=== PATIENT | female | born 1995 | race Caucasian/White ===

== ENCOUNTER 2020-03-03 11:38 | Emergency (ER) | payer MEDICAID, OTHER, SELFPAY ==
[2020-03-03 12:37] VITALS: BP 130/86; PULSE 92
--- NOTE | 2020-03-03 13:30 | EDM.PDOC ---
ED HPI GENERAL MEDICAL PROBLEM - General Chief Complaint: [employer] Problem Stated Complaint: IUD MAYBE BROKE A TEMP Time Seen by Provider: 03/03/20 13:28 Source of Information: Reports: Patient History Limitations: Reports: No Limitations - History of Present Illness INITIAL COMMENTS - FREE TEXT/NARRATIVE: pt arrives wanting to have her control device out of her left arm. She feels like this is making her sick. She is nauseated alot of the time . She feels like it is putting out heat. Onset: Gradual Duration: Day(s): Associated Symptoms: Reports: Other ( feels hot and cold and she is fatiqued. ) - Related Data Allergies Allergy/AdvReac Type Severity Reaction Status Date / Time No Known Allergies Allergy Verified 04/09/15 10:05 Home Meds: Home Meds NK [No Known Home Meds] 03/03/20 [History] Past Medical History HEENT History: Reports: Impaired Vision Other Respiratory History: SEASONAL ALLERGIES [employer] History: Reports: Endometriosis Social & Family History - Tobacco Use Smoking Status *Q: Never Smoker - Caffeine Use Caffeine Use: Reports: Tea - Recreational Drug Use Recreational Drug Use: No ED ROS GENERAL - Review of Systems Review Of Systems: See Below Constitutional: Reports: Fever, Other (none documented today. ) HEENT: Reports: No Symptoms Respiratory: Reports: No Symptoms Cardiovascular: Reports: No Symptoms Endocrine: Reports: No Symptoms GI/Abdominal: Reports: No Symptoms : Reports: No Symptoms Musculoskeletal: Reports: No Symptoms ED EXAM, GI/ABD - Physical Exam Exam: See Below Text/Narrative:: pt arrived with feeling hot and cold. She is fatiqued and having nausea. Exam Limited By: No Limitations General Appearance: Alert, No Apparent Distress Nose: Normal Inspection Throat/Mouth: Normal Inspection Head: Atraumatic (Female) Exam: Deferred Neurological: Alert, Oriented Course - Vital Signs Last Recorded V/S: Last Vital Signs Temp 36.9 C 03/03/20 12:45 Pulse 92 03/03/20 12:45 Resp 18 03/03/20 12:45 BP 130/86 03/03/20 12:45 Pulse Ox 95 03/03/20 12:45 Departure - Departure Time of Disposition: 13:28 Disposition: Home, Self-Care 01 Condition: Fair Clinical Impression: Counseling for control, intrauterine device - Discharge Information Referrals: PCP,None [Primary Care Provider] - Forms: ED Department Discharge Care Plan Goals: appt with wardrobe specialist on wed at the clinic for removal of the control device from left arm. Sepsis Event Note - Evaluation Sepsis Screening Result: No Definite Risk - Focused Exam Vital Signs: Vital Signs Temp Pulse Resp BP Pulse Ox 03/03/20 12:45 36.9 C 92 18 130/86 95 03/03/20 12:17 36.9 C 92 18 130/86 95 Date Exam was Performed: 03/03/20 Time Exam was Performed: 13:34
== END 2020-03-03 13:47 | disposition home or self-care (01) ==
LOC: JP.ED 11:38
DX: Z30.09 Encounter for other general counseling and advice on contraception (principal); R53.83 Other fatigue; R11.0 Nausea
CPT/HCPCS: 99282